=== PATIENT | male | born 1965 ===

== ENCOUNTER 2017-10-06 11:33 | Day surgery (SDC) | payer OTHER ==
[~2017-10-06 11:33] MED LIST: Buffered Lidocaine 0.9% SYRIN* 5 ML/SYR SYRINGE INTRADERM ONE; Buffered Lidocaine 0.9% SYRIN* 5 ML/SYR SYRINGE ONE; Famotidine IV* 10 MG/ML 2 ML (20 mg) IV ONE; Famotidine IV* 10 MG/ML 2 ML (20 mg) ONE; Midazolam* 1 MG/ML 5 ML VIAL (5 MG) ONE; ceFAZolin 2 GM in 100 MLS NS (*) BAG IVPB ONE; fentaNYL* 50 MCG/ML 2 ML VIAL (100 MCG VIAL) ONE
[2017-10-06] MEDS ORDERED: Bupivacaine 0.25% SDV* 30 ML ONE (12:10)
[2017-10-06] MEDS ORDERED: Dexamethasone IV* 4 MG/ML 1 ML (4 MG) ONE (12:32)
[2017-10-06] MEDS ORDERED: Ondansetron INJ* 2 MG/ML VIAL ONE (12:32)
[2017-10-06] MEDS ORDERED: Succinylcholine* 20 MG/ML 10 ML VIAL ONE (12:32)
[2017-10-06] MEDS ORDERED: Ketorolac INJ* 30 MG/ML 1 ML VIAL ONE (12:32)
[2017-10-06] MEDS ORDERED: Propofol* 10 MG/ML 20 ML BTL IV PUSH ONE (12:32)
[2017-10-06] MEDS ORDERED: HYDROmorphone INJ* 1 MG/ML CARPUJECT SYRINGE IV PRN (12:51)
[2017-10-06] MEDS ORDERED: Acetaminophen TAB* 325 MG PO PRN (12:51)
[2017-10-06] MEDS ORDERED: DiMENhydriNATE IV* 50 MG/ML VIAL IV PUSH PRN (12:51)
[2017-10-06] MEDS ORDERED: oxyCODONE TAB* 5 MG TAB PO PRN (12:51)
[2017-10-06] MEDS ORDERED: Naloxone* 0.4 MG/ML 1 ML VIAL IV PRN (12:51)
[2017-10-06 15:03] VITALS: BP 126/81
--- NOTE | 2017-10-10 03:11 | OP ---
CC: [facility]; Dr. Glenroy Plaza OPERATIVE REPORT: DATE OF OPERATION: 10/06/17 DATE OF : 65 SURGEON: Armand Marley MD CONTROL OPERATOR FLOW COAT: CHITRA Aly PRE-OP DIAGNOSIS: Left inguinal hernia. POST-OP DIAGNOSIS: Left inguinal hernia. OPERATIVE PROCEDURE: Laparoscopic left inguinal hernia repair with mesh. ESTIMATED BLOOD LOSS: Minimal blood loss. IV FLUIDS: Minimal crystalloid fluid given. SPECIMEN: None. DESCRIPTION OF PROCEDURE: Mr. Corbin was identified in the preoperative area. His lower abdomen c lipped of hair and then marked. Consent was signed. He was taken to the operating room, placed on t he operating table in the supine position. Preoperative antibiotics were given. Sequential devices w ere placed on bilateral lower extremities. General anesthesia was induced. The patient's abdomen wa s prepped and draped in standard surgical fashion. Time-out was performed. An infraumbilical incision was made. This was deepened down to the anterior fascia. On the right, t he fascia was incised and the right rectus pillar was retracted laterally. A blunt dissection was th en carried out with surgeon's finger to free up the preperitoneal plane crossing midline. A 12-mm tr ocar was then inserted and the preperitoneal plane was allowed to insufflate to pressure of 12 mmHg. The patient tolerated the insufflation well. Laparoscope was inserted and blunt dissection was yanez ied out towards the midline. This opened up enough space to put two 5-mm trocars in the lower midlin e and then additional blunt dissection performed to expose the full preperitoneal plane medially at b oth the right and left Hipolito's ligament. We then identified a large direct hernia. This was gently reduced with blunt dissection and then we identified epigastric vessels and maintained these anterio rly and opened up the space of Bog[place]. The spermatic structures were isolated and then skeletonized. No indirect sac was identified. With the full myopectineal orifice exposed, we then placed a Bard 3D mesh left side into the preperit fleming plane, allowed to unfurl and tacked in the standard fashion medially at Hipolito's and then later ally taking care not to injure the nerves. The preperitoneal plane was allowed to collapse. Trocars removed under direct vision and the anterior fascia was reapproximated at the umbilical port site wi th 0 Vicryl sutures and all 3 skin incisions were reapproximated with 4-0 Monocryl subcuticular sutur es followed by Steri-Strips and sterile dressing. The patient was woken up in the OR and transferred to the PACU in stable condition. [id number]/[facility] #: [id number]
== END 2017-10-06 15:19 | disposition home or self-care (01) ==
LOC: OR 11:33
PROVIDERS: ATTEND Surgery
DX: K40.90 Unilateral inguinal hernia, without obstruction or gangrene, not specified as recurrent (principal); N40.0 Benign prostatic hyperplasia without lower urinary tract symptoms
CPT/HCPCS: C1781; J0330; J1100; J1885; J2250; J2405; J2704; J3010